=== PATIENT | female | born 1980 | race Caucasian/White ===

== ENCOUNTER 2018-09-11 23:23 | Inpatient (IN) | payer MEDICAID ==
[~2018-09-11] VITALS: Ht 170.2 cm; Wt 63.5 kg
[2018-09-11 23:23] VITALS: BP 168/100
--- NOTE | 2018-09-11 23:23 | NUR ---
PT [facility]AV[facility] BLS. TAKEN TO BED 6
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
[2018-09-12 00:02] LABS: BASOPHILS # (AUTO) 0.1 K/uL (0.00-0.22); BASOPHILS % (AUTO) 0.7 % (0.0-2.0); EOSINOPHILS # (AUTO) 0.1 K/uL (0-0.4); EOSINOPHILS % (AUTO) 0.6 % (0.0-4.0); HEMATOCRIT 27.7 % (36-48); HEMOGLOBIN 9.1 g/dL (12.0-16.0); LYMPHOCYTES # (AUTO) 1.8 K/uL (2.5-16.5); LYMPHOCYTES % (AUTO) 19.5 % (20.5-51.1); MEAN CORPUSCULAR HEMOGLOBIN 26 pg (27-31); MEAN CORPUSCULAR HGB CONC 33 g/dL (33-37); MEAN CORPUSCULAR VOLUME 79.5 fL (80-94); MONOCYTES # (AUTO) 0.5 K/uL (0.8-1.0); NEUTROPHILS # (AUTO) 6.6 K/uL (1.8-7.7); NEUTROPHILS % (AUTO) 73.2 % (42.2-75.2); PLATELET COUNT (AUTO) 427 K/uL (140-450); RED BLOOD CELL COUNT(AUTO) 3.48 MIL/uL (4.20-5.40); RED CELL DISTRIBUTION WIDTH 17.4 % (11.6-13.7)
[2018-09-12 00:09] LABS: ANION GAP 13.5 (8-16); CHLORIDE 104 mmol/L (98-107); CREATININE 0.7 mg/dL (0.6-1.3); GFR ARICAN-AMERICAN 120 mL/min (>90); GLUCOSE 110 mg/dL (74-106); POTASSIUM 3.5 mmol/L (3.5-5.1); SODIUM SERUM 139 mmol/L (136-145); UREA NITROGEN, BLOOD 8 mg/dL (7-18)
[2018-09-12 00:09] LABS: BARBITURATE, URINE NEG. ng/ml (NEG <=200); BENZODIAZEPINE, URINE NEG. ng/mL (NEG <=200); CANNABINOID, URINE NEG. ng/mL (NEG <=50); COCAINE, URINE NEG. ng/mL (NEG <=300); OPIATE, URINE NEG. ng/mL (NEG <=2000); PHENCYCLIDINE SCREEN,URINE NEG. ng/mL (NEG <=25)
[2018-09-12 00:14] LABS: ACETAMINOPHEN < 0.5 ug/ml (10-30); ALBUMIN 2.8 g/dL (3.4-5.0); ASPARTATE AMINOTRANSFERASE 20 U/L (15-37); TOTAL BILIRUBIN 0.4 mg/dL (0.0-1.0)
[2018-09-12 00:16] LABS: SALICYLATE < 2.8 mg/dL (2.8-20.0)
--- NOTE | 2018-09-12 00:33 | NUR ---
PT ASLEEP AT THIS TIME, AROUSABLE TO VOICE. SITTER REMAINS AT BEDSIDE FOR 1:1 OBSERVATION.
--- NOTE | 2018-09-12 00:51 | NUR ---
Dr. Romo evaluating patient at bedside.
--- NOTE | 2018-09-12 00:59 | NUR ---
TELEPSYCH INITIATED PER DR. David KANG
--- NOTE | 2018-09-12 01:00 | NUR ---
PT AWAKE AND CONTINUES TO TALK EXCESSIVELY WITH FLIGHT OF IDEAS.
--- NOTE | 2018-09-12 01:05 | NUR ---
PT REQUESTING TO USE RESTROOM, WHEN OFFERED ASSISTANCE TO RESTROOM PT REFUSED TO AMBULATE TO RESTROOM. PT RETURNED TO BED, 1:[address]
--- NOTE | 2018-09-12 01:15 | NUR ---
PT URINATED ON SELF AND BED. SHEETS CHANGED, NEW GOWN OFFERED. PT AMBULATORY WITH EMT TO RESTROOM TO CHANGE GOWN. PT REFUSED CLEAN UNDERWEAR. SOILED UNDERWEAR REMOVED.
--- NOTE | 2018-09-12 02:18 | NUR ---
PT CONTINUING TO GET OUT OF BED AND WANDERING AROUND ROOM. REDIRECTED TO BED. 1:[address]
--- NOTE | 2018-09-12 02:30 | NUR ---
PT AGITATED, CONTINUING TO GET OUT OF BED. REDIRECTED PT TO BED. 1:[address]
--- NOTE | 2018-09-12 02:40 | NUR ---
PT ATTEMPTING TO LEAVE BED AND WANDER AROUND ROOM. ATTEMPTS TO REDIRECT PT BACK TO BED, PT REMAINS AGITATED.
--- NOTE | 2018-09-12 03:00 | NUR ---
PT ROAMING AROUND ROOM DESPITE REDIRECTION AND 1:1 SITTER AND DIRECT OBSERVATION. ORDER FOR SOFT RESTRAINTS TO UPPER EXTREMITIES RECEIVED.
--- NOTE | 2018-09-12 03:15 | NUR ---
PT REMAINS AGITATED, RESTRAINTS REMAIN IN PLACE. PULSES WNL TO BILATERAL UPPER EXTREMITES. CAP REFILL WNL.
--- NOTE | 2018-09-12 03:30 | NUR ---
PT SLEEPING AT THIS TIME. RESTRAINTS REMOVED. ER AWARE OF PT STATUS.
--- NOTE | 2018-09-12 04:11 | NUR ---
TELEPSYCH, DR. TINOCO, SPEAKING WITH VIDA PINEDA
--- NOTE | 2018-09-12 04:15 | NUR ---
SPOKE WITH DR TINOCO, INFORMED OF PT STATUS. DR TINOCO TO SPEAK WIT PATIENT VIA TELEPSYCH.
--- NOTE | 2018-09-12 04:16 | NUR ---
TELEPSYCH, DR. TINOCO, SPEAKING WITH PT VIA REMOTE COMMUNICATION
--- NOTE | 2018-09-12 04:20 | NUR ---
PT ATTEMPTING TO GET OUT OF BED DURING TELEPSYCH CONSULT. REDIRECTED TO BED WITH 1:1 SITTER AND ER EMT AT BEDSIDE.
--- NOTE | 2018-09-12 04:30 | NUR ---
PT CONTINUOUSLY ROAMING AROUND ROOM AND GETTING OUT OF BED. REDIRECTED TO BED WITH SITTER.
--- NOTE | 2018-09-12 04:39 | NUR ---
DR TINOCO RECCOMENDS [id number] HOLD AND INPATIENT PSYCH ADMISSION. FAX TO FOLLOW.
--- NOTE | 2018-09-12 04:40 | NUR ---
PT AGITATED, REFUSING TO RETURN TO BED. SOFT RESTRAINTS APPLIED TO UPPER EXTREMITIES. PULSES WNL. CAP REFILL WNL. PT REMAINS WITH FLIGHT OF IDEAS.
--- NOTE | 2018-09-12 04:55 | NUR ---
PT REMAINS AGITATED, RESTRAINTS REMAIN IN PLACE. PULSES WNL. CAP REFILL WNL.
--- NOTE | 2018-09-12 05:15 | NUR ---
PT SLEEPING. RESTRAINTS REMOVED.
--- NOTE | 2018-09-12 06:10 | NUR ---
New referral has been received via fax. Call Center will begin contacting contracted [facility] regarding bed placement due to insurance. Will also endorse to on coming AM shift.
--- NOTE | 2018-09-12 06:19 | NUR ---
New referral were faxed out to contracted [facility] facilities regarding bed placement. Packet was faxed out to [facility], [facility], [facility], [facility], [facility]. Will endorse to on coming AM shift to follow up.
--- NOTE | 2018-09-12 07:08 | NUR ---
RECEIVED REPORT FROM VIDA JACOME FOR TRANSFER OF CARE.
--- NOTE | 2018-09-12 07:23 | NUR ---
PT ATTEMPTING TO GET OUT OF BED, EMT ATTEMPTING TO REDIRECT AND ENCOURAGE PT TO STAY IN BED AT THIS TIME. PT IS COOPERATING.
--- NOTE | 2018-09-12 08:00 | NUR ---
PT EATING BREAKFAST, SITTER AT BEDSIDE
--- NOTE | 2018-09-12 09:16 | NUR ---
PT ASLEEP IN BED AT THIS TIME, SITTER AT BEDSIDE
[2018-09-12] MEDS ORDERED: ACETAMINOPHEN 325 MG TAB PO PRN (09:50)
[2018-09-12] MEDS ORDERED: HYDROcodone/APAP 5/325 MG 1 TAB TAB PO PRN (09:50)
[2018-09-12] MEDS ORDERED: NACL 0.9% 1,000 ML IV SCH (09:50)
[2018-09-12] MEDS ORDERED: DOCUSATE SODIUM 100 MG GELCAP PO PRN (09:50)
[2018-09-12] MEDS ORDERED: ONDANSETRON 4 MG/2 ML VIAL IM/IVP PRN (09:50)
[2018-09-12] MEDS ORDERED: OLANZapine 5 MG TAB PO SCH (10:20)
--- NOTE | 2018-09-12 10:20 | NUR ---
Patient will be admitted to care of DR. WISE. Admited to MED SURGE. Will go to room 110A. Belongings list completed. Report to VIDA TY.
--- NOTE | 2018-09-12 10:20 | NUR ---
RECEIVED REPORT FROM OR NURSE. PT BROUGHT TO UNIT VIA GURNEY. PT IS AMBULATORY WITH STEADY GAIT, TRANSFERRED SELF TO [facility] BED WITH STANDBY ASSISTANCE. PT IS AAOX2, REQUIRES REORIENTATION AND REMINDERS. NO IV IN PLACE, ED NURSE MENTIONED THAT PT PULLED OUT IV. LUNG SOUNDS CLEAR THROUGHOUT LUNG SAENZ. ABDOMEN SOFT AND FLAT, ACTIVE BOWEL SOUNDS. SKIN COLOR IS APPROPRIATE TO ETHNICITY, SKIN IS INTACT AND WARM TO TOUCH. NO EDEMA NOTED. REVIEWED POC WITH PT. PT VERBALIZED UNDERSTANDING, BUT REQUIRES REINFORCEMENT. SAFETY MEASURES IN PLACE, SITTER AT BEDSIDE. WILL CONTINUE TO MONITOR PT.
--- NOTE | 2018-09-12 11:00 | NUR ---
PT MENTIONED THAT KATHI WARD IS HER [employer]ENTER SUPERVISOR AND MAY BE CONTACTED VIA PHONE AT . Addendum: 09/12/18 at 9608 by Francia Cano RN ADDITION: CALLED NUMBER PROVIDED BY PT. NO RESPONSE, UNABLE TO LEAVE VOICEMAIL. PER PATIENT KATHI LENTZ IS THE DCFS GUARDIAN FOR HER 2 SONS.
--- NOTE | 2018-09-12 11:11 | NUR ---
PT has been accepted to [address] Dumont. Number for report: [phone] Requests to wait until after 11:30 am before calling for report.
--- NOTE | 2018-09-12 11:25 | NUR ---
Received call from Alexandre from [facility] informing nurse that pt has been accepted at [facility] in [place] in unit 1-South room 121B, Dr Roman will be accepting pt, & to give report to receiving nurse @ [phone].
[2018-09-12] MEDS ORDERED: OLAN20TA1 PO (11:34)
[2018-09-12 11:49] LABS: CHOL/HDL RATIO 2.8 (1-4.5); MAGNESIUM 2.1 mg/dL (1.8-2.4); PHOSPHORUS 3.1 mg/dL (2.5-4.9); THYROID STIMULATING HORMONE 0.6 uIU/mL (0.34-3.74)
--- NOTE | 2018-09-12 12:50 | NUR ---
PT GIVEN ORAL MED PER ORDER. PT WAS ASKED TO STAY STILL FOR IV INSERTION. PT IS RESTLESS AND CONTINUES WITH EXCESSIVE TALKING, NEEDED CONSTANT REDIRECTION DURING FIRST ATTEMPT. FIRST ATTEMPT MADE TO START IV ON LT FA, NO BLOOD RETURN NOTED, IV PULLED OUT. ASKED PT TO KEEP ARM STEAD AND STILL, BUT WAS RESTLESS DURING SECOND ATTEMPT. ATTEMPT MADE ON LT AC, NO BLOOD RETURN NOTED, IV CATHETER DISCONTINUED. APPLIED PRESSURE TO AREAS, NO ACTIVE BLEEDING NOTED. OFFERED WATER TO PT, AND ASKED TO DRINK LIQUIDS TOLERATED.
[2018-09-12 13:35] LABS: PROTHROMBIN TIME 9.9 secs (10.8-13.4)
--- NOTE | 2018-09-12 14:25 | NUR ---
Received call from Orquidea Landaverde, director of [facility] who had called 911 for pt yesterday. Per Orquidea, pt arrived to [facility] yesterday & started acting erratically & wanted to lie on the ground in front of a car. She also states that pt has a 14month old & has given 13 days ago, both children are in child protective services. Per Orquidea, we can add her as an emergency contact for pt. Pt also agree.
--- NOTE | 2018-09-12 14:52 | NUR ---
PT REFUSED TO ANSWER WHEN ASKED ABOUT THE BRUISING ON HER RT EYE. PT IS DROWSY AND SPEECH IS UNINTELLIGIBLE. RESPIRATIONS EVEN AND UNLABORED ON RA. WILL CONTINUE TO MONITOR.
--- NOTE | 2018-09-12 15:27 | NUR ---
LEE DIRECTOR OF [employer] [facility] CAME TO VISIT PT. STATES THAT SHE IS PT'S DISTANT RELATIVE. GAVE ORTHOPEDIC PHYSICAL THERAPIST NARAMyrtle BARAKAT PT'S MOTHER, MAY BE REACHED AT . CLARIFIED THAT KATHI LENTZ IS HER MOTHER IN LAW AND IN CUSTODY OF HER TWO CHILDREN. LEFT FOOD AT BEDSIDE AND INSPECTED FOR SAFETY HAZARDS, NONE FOUND. PT IS ASLEEP AT THIS TIME. RESPIRATIONS EVEN AND UNLABORED ON RA.
[2018-09-12 16:00] VITALS: BP 149/87
--- NOTE | 2018-09-12 16:46 | NUR ---
VELIA CROCKETT SPOKE WITH [facility] [phone] FOR TRANSPORT TO USE CALL THE CAR AND CALLED [phone] ANOTHER NUMBER FOR TRANSPORT [phone]
[2018-09-12] MEDS ORDERED: FERR-20 PO (16:58)
[2018-09-12] MEDS ORDERED: ASCO500T45 PO (16:58)
--- NOTE | 2018-09-12 17:01 | NUR ---
CALLED [phone] PUT ME ON HOLD ATTEMMPT TO CALL SEVERAL TIME NOTIFIED [facility] TO F/U AND ARRANGE TRANSPORT
--- NOTE | 2018-09-12 17:18 | NUR ---
I CALLED [facility] [place] PROVIDED ALL THE INFORMATION PER [facility] SHE WILL ARRANGE ALL THE TRANSPORT RESERVE ID NUMBER [id number] AND WILL CALL BACK PROVIDED THE FLOOR NUMBER .
--- NOTE | 2018-09-12 17:46 | NUR ---
[facility] CALLED AND SAID THEIR NOT ABLE TO GET PATIENT. I CALLED [facility] AND THEY SAID THAT ITS WILL CALL, ETA IS 30 MINUTES.
[2018-09-12] MEDS ORDERED: SODIUM FERRIC GLUCONATE 125 MG in NACL 0.9% 100 ML IV SCH (18:00)
--- NOTE | 2018-09-12 18:40 | NUR ---
Pt discharged at this time to [facility]. Left unit via gurney with 2 bulk intake worker from [facility]. No signs of distress. Belongings brought in by security & sent with pt upon departure. Addendum: 09/12/18 at 1852 by Shira Brothers RN Addendum: pt unable to sign discharge papers d/t confusion.
--- NOTE | 2018-09-12 18:45 | NUR ---
Gave report to Christian MCPHERSON from [facility].
[2018-09-13 06:10] LABS: T4 (THYROXINE) 9.1 ug/dL (4.5-12.0)
[2018-09-13] MEDS ORDERED: OLANZapine 5 MG TAB PO SCH (09:00)
== END 2018-09-12 18:40 | disposition designated cancer center or children's hospital (05) | DRG 812 ==
LOC: MED 23:23 → MTU 09-12 09:28
PROVIDERS: ADMIT General Practice; ATTEND General Practice
DX: T43.621A Poisoning by amphetamines, accidental (unintentional), initial encounter (principal); G92 Toxic encephalopathy; E43 Unspecified severe protein-calorie malnutrition; F20.9 Schizophrenia, unspecified; R45.851 Suicidal ideations; F15.90 Other stimulant use, unspecified, uncomplicated; D50.9 Iron deficiency anemia, unspecified; Z88.8 Allergy status to other drugs, medicaments and biological substances; Y92.89 Other specified places as the place of occurrence of the external cause; Z68.21 Body mass index [BMI] 21.0-21.9, adult
CPT/HCPCS: 36415; 71045; 80053; 80305; 81002; 81025; 82150; 82607; 82728; 82746; 83036; 83540; 83605; 83690; 83735; 83880; 84100; 84436; 84443; 84484; 85025; 85045; 85610; 85730; 87081; 99285; G0480; G0482; J2916; J7030; Q0092

== ENCOUNTER 2018-10-11 16:00 | Emergency (ER) | payer MEDICAID ==
[~2018-10-11] VITALS: Ht 167.6 cm; Wt 92.5 kg
[~2018-10-11 16:00] MED LIST: ASCO500T45 PO; FERR-20 PO; OLAN20TA1 PO
[2018-10-11 16:10] VITALS: BP 144/86
--- NOTE | 2018-10-11 16:16 | NUR ---
PT AMB TO BED 8 WITH STEADY GAIT
[2018-10-11] MEDS ORDERED: OLAN2.5T1 PO (16:23)
[2018-10-11] MEDS ORDERED: SERT50TA PO (16:24)
[2018-10-11] MEDS ORDERED: ABI10 PO (16:25)
--- NOTE | 2018-10-11 16:40 | NUR ---
PT BIB [facility]/O [facility] RE[facility] FOR ZYPREXA, ZOLOFT, AND ABILIFY. AAOX4, NO PAIN, PMH- HEP C, DEPRESSION, SCHIZOPHRENIA
--- NOTE | 2018-10-11 16:49 | NUR ---
PT AMB TO [facility] W/O ASST
--- NOTE | 2018-10-11 17:04 | NUR ---
RICHARD MEDELLIN AT BEDSIDE
[2018-10-11 17:21] VITALS: BP 122/80
--- NOTE | 2018-10-11 17:22 | NUR ---
Patient discharged with v/s stable. Written and verbal after care instructions given and explained. Patient alert, oriented and verbalized understanding of instructions. Ambulatory with steady gait. All questions addressed prior to discharge. ID band removed. Patient advised to follow up with PMD. Rx of ABILIFY,SERTRALINE,ZYPREXA given. Patient educated on indication of medication including possible reaction and side effects. Opportunity to ask questions provided and answered.
== END 2018-10-11 17:22 | disposition home or self-care (01) ==
LOC: MED 16:00
DX: F20.9 Schizophrenia, unspecified (principal); F32.9 Major depressive disorder, single episode, unspecified; F15.10 Other stimulant abuse, uncomplicated; Z76.0 Encounter for issue of repeat prescription; Z79.899 Other long term (current) drug therapy; Z88.0 Allergy status to penicillin
CPT/HCPCS: 99283